=== PATIENT | male | born 1975 | race African-American/Black ===

== ENCOUNTER 2024-09-14 18:14 | Emergency (ER) | payer OTHER ==
[2024-09-14] MEDS: Acetaminophen/HYDROcodone 325-10 MG Tab PO STA (19:12)
== END 2024-09-14 19:36 | disposition home or self-care (01) ==
LOC: MW.ED 18:14
DX: S52.021A Displaced fracture of olecranon process without intraarticular extension of right ulna, initial encounter for closed fracture (principal); S46.311A Strain of muscle, fascia and tendon of triceps, right arm, initial encounter; I10 Essential (primary) hypertension; Z79.899 Other long term (current) drug therapy; W01.0XXA Fall on same level from slipping, tripping and stumbling without subsequent striking against object, initial encounter; Y93.89 Activity, other specified
CPT/HCPCS: 29105; 73080; 73090; 99283; A9270; 99284